=== PATIENT | female | born 1980 | race Caucasian/White ===

== ENCOUNTER 2022-05-04 22:07 | Emergency (ER) | payer BC, OTHER ==
[2022-05-04 22:28] VITALS: BP 154/86; PULSE 102; RESP 19; TEMP 98.6; BMI 25.7
[2022-05-05] MEDS ORDERED: IBUPROFEN 400 MG TABLET (FP) PO ONE (00:41)
[2022-05-05] MEDS ORDERED: ACETAMINOPHEN 325 MG TABLET (FP) PO ONE (00:41)
[2022-05-05] MEDS ORDERED: ACETAMINOPHEN 325 MG TABLET (FP) ONE (00:43)
== END 2022-05-05 02:03 | disposition home or self-care (01) ==
LOC: JER 22:07
DX: J09.X2 Influenza due to identified novel influenza A virus with other respiratory manifestations (principal)
CPT/HCPCS: 0241U-QW; 99283-25

== ENCOUNTER 2024-10-15 13:07 | Emergency (ER) | payer BC, OTHER ==
[2024-10-15 13:16] VITALS: RESP 18; BMI 28.3
[2024-10-15] MEDS ORDERED: ACETAMINOPHEN 500 MG TABLET (FP) ONE (13:55)
[2024-10-15] MEDS ORDERED: ALBUTEROL SO4 2.5/IPRATROPIUM 0.5 INH SOL 3 ML VIAL.NEB. NEB ONE (13:55)
[2024-10-15] MEDS: ACETAMINOPHEN 325 MG TABLET (FP) PO ONE (14:25)
[2024-10-15] MEDS: ALBUTEROL SO4 2.5/IPRATROPIUM 0.5 INH SOL 3 ML VIAL.NEB. NEB SCH (14:26)
[2024-10-15 14:31] LABS: ABSOLUTE IMMATURE GRANULOCYTES 0.04 x10^3/uL (0.0-0.031); BASOPHILS # 0.07 x10^3/uL (0.01-0.08); EOSINOPHIL % 2.4 % (0.7-5.8); EOSINOPHILS # 0.21 x10^3/uL (0.04-0.36); HEMATOCRIT 41.4 % (34.1-44.9); HEMOGLOBIN 13.1 g/dL (11.2-15.7); MCHC 31.6 g/dl (32.2-35.5); MEAN PLT VOLUME 9.9 fl (9.4-12.3); MONOCYTE # 0.73 x10^3/uL (0.24-0.86); MONOCYTE % 8.4 % (4.7-12.5); PLATELET COUNT 266 x10^3/uL (182-369); RDW 13.1 % (12.2-17.1)
[2024-10-15 14:56] LABS: POTASSIUM 3.9 mmol/L (3.5-5.1)
[2024-10-15 14:58] LABS: ALBUMIN 4.2 g/dl (3.4-5.0)
[2024-10-15 14:59] LABS: BLOOD UREA NITROGEN 12.4 mg/dL (7-18); CALCIUM 10.2 mg/dL (8.5-10.1)
[2024-10-15 15:03] LABS: CREATININE 0.9 mg/dL (0.55-1.3)
[2024-10-15 15:04] LABS: BILIRUBIN,TOTAL 0.3 mg/dL (0.2-1); TOT PROT 7.8 g/dl (6.4-8.2)
[2024-10-15 15:36] VITALS: BP 129/74; PULSE 77; TEMP 97.7
[2024-10-15 15:53] LABS: HCV DIAGNOSTIC IN-HOUSE W/RFLX NON-REACTIVE (NONREACTIVE); HIV INTERPRETATION NEGATIVE (NEGATIVE)
== END 2024-10-15 15:42 | disposition home or self-care (01) ==
LOC: JER 13:07
PROC: 3E0F7GC Introduction of Other Therapeutic Substance into Respiratory Tract, Via Natural or Artificial Opening (ICD-10-PCS; principal; 2024-10-15)
DX: R07.89 Other chest pain (principal); R06.00 Dyspnea, unspecified
CPT/HCPCS: 36415; 71046-TC-FY; 80053; 84484; 85025; 86803; 87389; 93005; 93010; 94640; 99285-25